=== PATIENT | male | born 1990 | race Caucasian/White ===

== ENCOUNTER 2023-09-23 12:40 | Outpatient (CLI) | payer BC, SELFPAY ==
--- NOTE | ~2023-09-23 | MR_ITS ---
MRI of the right knee Clinical history: Pain Technique: Coronal proton density and proton density-weighted images, sagittal proton-density and T2 fat-sat images, and axial proton-density fat-saturated images were acquired. Findings: Patient is status post ACL reconstruction surgery. ACL graft is very poorly delineated roxie phous, with probable recurrent complete tear at its midportion. Posterior cruciate ligament is intact . Medial collateral ligament and the lateral collateral again conflux are intact. Popliteus tendon is intact. Medial and lateral menisci are intact, without evidence of tear. Articular cartilage is relatively well preserved throughout the knee. No acute bone marrow signal abn ormality seen. Extensor mechanism is intact. Minimal joint effusion and minimal [place]'s cyst are present. 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 Minimal joint effusion and minimal [place]'s cyst. Reviewed, dictated and finalized at [facility]. Impression: Prior ACL reconstruction, with probable recurrent complete tear of the ACL liam t at its midportion. Minimal joint effusion and minimal [place]'s cyst.
== END 2023-09-23 12:41 ==
PROVIDERS: PCP Nurse Practitioner Family; Visit Provider Nurse Practitioner Family
DX: M23.8X1 Other internal derangements of right knee (principal); M25.361 Other instability, right knee
CPT/HCPCS: 73721

== ENCOUNTER 2024-05-28 08:11 | Emergency (ER) | payer BC, SELFPAY ==
[2024-05-28 08:48] VITALS: BP 134/86; PULSE 84; RESP 16; TEMP 36.6; O2SAT 99
--- NOTE | 2024-05-28 09:07 | ED_ITS ---
HPI - URI/Sore Throat General Chief Complaint: Upper Respiratory Infection Stated Complaint: sick Time Seen by Provider: 05/28/24 09:07 History of Present Illness HPI Narrative: 33-year-old male presented for complaint of runny nose and congestion, cough and sore throat with occasional sweats. Taking cough medicine for symptoms. Denies shortness of breath, wheezing, nausea vomiting, diarrhea or lethargy. Related Data Home Medications ?Medication ?Instructions ?Recorded ?Confirmed ?Last Taken ?Type No Home Medications 05/28/24 05/28/24 Unknown History Review of Systems 2 Review of Systems: CONSTITUTIONAL: Denies body aches, fever, chills, reports sweats. EYES: Denies visual changes, redness, or discharge. ENT: reports rhinorrhea, congestion, sore throat denies otalgia. CARDIOVASCULAR: Denies chest pain, palpitations, or edema. RESPIRATORY: Denies dyspnea. GASTROINTESTINAL: Denies abdominal pain, nausea, vomiting, or diarrhea. MUSCULOSKELETAL: Denies back pain, joint pain, or myalgia. 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 EYES: conjunctivae clear ENT: Mucous membranes moist. TMs pearly billingsley with normal light reflex bilaterally; no tragal tenderness. Oropharynx not erythematous without lesions. No drooling, no hoarseness, no trismus, uvula midline. No tripod positioning, hot potato voice, or soft palate swelling. NECK: Supple. No lymphadenopathy CHEST: Clear to auscultation, breath sounds equal. No respiratory distress, speaks in full sentences. HEART: Regular rate and rhythm. No murmur heard. SKIN: Warm, dry, no rash. NEURO: Alert and oriented x3. Course Course Emergency Course: Patient is aware of diagnosis, understands and agrees to treatment plan. Anticipatory guidance given. Patient agrees to follow-up as directed and is aware of reasons to seek care at the emergency department. Portions of this record may have been created with voice recognition software Level of Care: Express Care Visit Vital Signs Vital signs: Vital Signs Temperature 97.9 F 05/28/24 08:48 Pulse Rate 84 05/28/24 08:48 Respiratory Rate 16 05/28/24 08:48 Blood Pressure 134/86 05/28/24 08:48 Pulse Oximetry 99 05/28/24 08:48 Temperature 97.9 F 05/28/24 08:48 Pulse Rate 84 05/28/24 08:48 Respiratory Rate 16 05/28/24 08:48 Blood Pressure 134/86 05/28/24 08:48 Pulse Oximetry 99 05/28/24 08:48 MDM - URI/Sore Throat MDM Narrative Medical decision making narrative: Neg flu, covid, strep result reviewed with pt. Advise supportive treatments. Patient is appropriate for outpatient treatment and follow-up. Differential Diagnosis Differential diagnosis: Likely upper respiratory infection, viral infection and pharyngitis Discharge Plan Discharge Clinical Impression: Upper respiratory infection Patient Disposition: Home, Self-Care Condition: Stable Instructions: Antibiotic Form, Upper Respiratory Infection (ED) Additional Instructions: Flu and COVID negative. Rapid strep swab was negative today You will be notified in a few days if the culture comes back positive for strep, and appropriate antibiotics will be called in at that time. if symptoms are due to a viral illness, it is not treated with antibiotics. Viral symptoms can be present for up to 10-14 days. Recommendations Flonase spray and Zyrtec for sinus congestion Cough syrup may cause drowsiness; avoid driving or take it at night time. Tylenol every 8 hours as needed for pain/fever Soft foods, cool liquids, warm tea. Gargle with warm saltwater twice a day. Chloraseptic spray and throat lozenges. Rest and stay hydrated. --Follow up with your PCP --Go to the ER immediately if you cannot swallow your saliva, trouble breathing/wheezing, throat swelling, pain is persistent and severe Patient Language: Azeri Prescriptions: No Action No Home Medications Follow-up/Referrals: UNKNOWN,DOCTOR [Primary Care Provider] - Stand Alone Forms: Work/School Release IP Time of Disposition: 09:15
[2024-05-28 09:10] LABS: EDCOVIDSCREEN Negative (Negative); EDINFLUASCREEN Negative (Negative); EDINFLUBSCREEN Negative (Negative); EDSTREPNEGPOS1 Negative (Negative)
== END 2024-05-28 09:18 | disposition home or self-care (01) ==
PROVIDERS: Emergency Provider Nurse Practitioner Family
DX: J06.9 Acute upper respiratory infection, unspecified (principal); Z20.822 Contact with and (suspected) exposure to COVID-19
CPT/HCPCS: 87081; 87426; 87804; 87880; 99203; G0463